=== PATIENT | female | born 1965 | race Caucasian/White ===

== ENCOUNTER 2017-10-21 20:18 | Emergency (ER) | payer BC ==
[2017-10-21 20:24] VITALS: TEMP 99.2
[2017-10-21] MEDS ORDERED: ONDANSETRON 4 MG/2 ML VIAL IVP STA (20:51)
[2017-10-21] MEDS ORDERED: SODIUM CHLORIDE 0.9% 1,000 ML IV STA (20:51)
[2017-10-21 21:11] LABS: Basophils % (A) 1 %; Eosinophils # (A) 0.1 k/uL (0-0.7); Eosinophils % (A) 1 %; HCT 43.4 % (34.0-46.0); HGB 15.5 gm/dL (11.4-16.0); Lymphocytes # (A) 1.9 k/uL (1.0-4.8); Lymphocytes % (A) 30 %; MCH 31.9 pg (25.0-35.0); MCHC 35.7 g/dL (31.0-37.0); MCV 89.4 fL (80.0-100.0); Mean Platelet Volume 6.6; Monocytes # (A) 0.3 k/uL (0-1.0); Monocytes % (A) 5 %; Neutrophils % (A) 62 %; Platelet Count 429 k/uL (150-450); RBC 4.86 m/uL (3.80-5.40); RDW 11.9 % (11.5-15.5); WBC 6.5 k/uL (3.8-10.6)
--- NOTE | 2017-10-21 21:13 | ED ---
General Adult HPI - General Chief complaint: Abdominal Pain Stated complaint: Abd pain Time Seen by Provider: 10/21/17 20:44 Source: patient, RN notes reviewed Mode of arrival: wheelchair Limitations: no limitations - History of Present Illness Initial comments: Patient 52-year-old female presented to the emergency room today with a chief complaint of abdominal pain over the last 4 days. Patient does admit that she' s had some symptoms of nausea vomiting. Denies any diarrhea. Does admit that family numbers have some similar symptoms. Patient states that his have pain on the right side of the abdomen. Patient denies any other complaints or symptoms. Patient denies any recent fever, chills, shortness of breath, chest pain, numbness or tingling, dysuria or hematuria, constipation or diarrhea, headaches or visual changes, or any other complaints. - Related Data Home Medications Medication Instructions Recorded Confirmed Folic Acid 0.8 mg PO DAILY 10/21/17 10/21/17 Omeprazole Magnesium [PriLOSEC OTC] 20 mg PO DAILY 10/21/17 10/21/17 Thiamine [Vitamin B-1] 100 mg PO DAILY 10/21/17 10/21/17 amLODIPine [Norvasc] 5 mg PO DAILY 10/21/17 10/21/17 Previous Rx's Medication Instructions Recorded Ondansetron Odt [Zofran ODT] 4 mg PO Q8HR PRN #20 tab 10/21/17 Allergies Allergy/AdvReac Type Severity Reaction Status Date / Time No Known Allergies Allergy Verified 10/21/17 20:37 Review of Systems ROS Statement: Those systems with pertinent positive or pertinent negative responses have been documented in the HPI. ROS Other: All systems not noted in ROS Statement are negative. Past Medical History Past Medical History: GI Bleed Additional Past Medical History / Comment(s): abdominal discomfort History of Any Multi-Drug Resistant Organisms: MRSA Date of last positivie culture/infection: 2005 MDRO Source:: L LEG WOUND. Past Surgical History: No Surgical Hx Reported Additional Past Surgical History / Comment(s): PT HAS NEVER HAD SURGERY. Past Anesthesia/Blood Transfusion Reactions: No Reported Reaction Additional Past Anesthesia/Blood Transfusion Reaction / Comment(s): has had anesthesia with removal of wisdom teeth only Past Psychological History: Depression Smoking Status: Former smoker Past Alcohol Use History: Occasional Past Drug Use History: None Reported - Past Family History Father Family Medical History: Cancer Additional Family Medical History / Comment(s): PT IS LIVING WITH STAGE 4 ESOPHAGEAL CANCER. HE IS 76 YRS OLD. Mother Family Medical History: Vascular Disorder Additional Family Medical History / Comment(s): MOTHER IS ALIVE AND 74 YRES OLD. SHE HAD CARATID ARTERY DISEASE. General Exam - General Exam Comments Initial Comments: General: The patient is awake and alert, in no distress, and does not appear acutely ill. Eye: Pupils are equal, round and reactive to light, extra-ocular movements are intact. No nystagmus. There is normal conjunctiva bilaterally. No signs of icterus. Ears, nose, mouth and throat: There are moist mucous membranes and no oral lesions. Neck: The neck is supple, there is no tenderness or JVD. Cardiovascular: There is a regular rate and rhythm. No murmur, rub or gallop is appreciated. Respiratory: Lungs are clear to auscultation, respirations are non-labored, breath sounds are equal. No wheezes, stridor, rales, or rhonchi. Gastrointestinal: Abdomen soft on palpation. Patient does have mild tenderness in the right upper and lower quadrants. Mild right-sided CVA tenderness. No guarding. No rebound tenderness. Musculoskeletal: Normal ROM, no tenderness. Strength 5/5. Sensation intact. Pulses equal bilaterally 2+. Neurological: A&O x 3. CN II-XII intact, There are no obvious motor or sensory deficits. Coordination appears grossly intact. Speech is normal. Skin: Skin is warm and dry and no rashes or lesions are noted. Psychiatric: Cooperative, appropriate mood & affect, normal judgment. Limitations: no limitations Course Vital Signs 10/21/17 10/21/17 10/21/17 20:21 21:24 22:30 Temperature 99.2 F Pulse Rate 118 H 96 67 Respiratory 18 19 12 Rate Blood Pressure 148/87 130/77 160/92 O2 Sat by Pulse 95 95 96 Oximetry Medical Decision Making - Medical Decision Making Patient reexamined at this time shows no signs of distress. Patient's ultrasound shows a hepatic cyst and no evidence of acute cholecystitis. Patient 's labs reviewed. Blood glucose 162. Patient updated on the results. Doing well. Patient states she feels comfortable following up with family doctor. Advised to have blood sugar rechecked. Will be given nausea medication for symptoms. She is requesting something to help her relax and sleep tonight. Will be given dose of Ativan prior to discharge. Advised return if any symptoms increase worsen. - Lab Data Result diagrams: 10/21/17 20:44 10/21/17 20:44 Lab Results 10/21/17 10/21/17 10/21/17 Range/Units 20:44 20:44 21:16 WBC 6.5 (3.8-10.6) k/uL RBC 4.86 (3.80-5.40) m/uL Hgb 15.5 (11.4-16.0) gm/dL Hct 43.4 (34.0-46.0) % MCV 89.4 (80.0-100.0) fL MCH 31.9 (25.0-35.0) pg MCHC 35.7 (31.0-37.0) g/dL RDW 11.9 (11.5-15.5) % Plt Count 429 (150-450) k/uL Neutrophils % 62 % Lymphocytes % 30 % Monocytes % 5 % Eosinophils % 1 % Basophils % 1 % Neutrophils # 4.0 (1.3-7.7) k/uL Lymphocytes # 1.9 (1.0-4.8) k/uL Monocytes # 0.3 (0-1.0) k/uL Eosinophils # 0.1 (0-0.7) k/uL Basophils # 0.0 (0-0.2) k/uL Sodium 143 (137-145) mmol/L Potassium 4.0 (3.5-5.1) mmol/L Chloride 100 (98-107) mmol/L Carbon Dioxide 23 (22-30) mmol/L Anion Gap 20 mmol/L BUN 11 (7-17) mg/dL Creatinine 0.60 (0.52-1.04) mg/dL Est GFR (CKD-EPI)AfAm >90 (>60 ml/min/1.73 sqM) Est GFR (CKD-EPI)NonAf >90 (>60 ml/min/1.73 sqM) Glucose 162 H (74-99) mg/dL Calcium 9.8 (8.4-10.2) mg/dL Total Bilirubin 0.4 (0.2-1.3) mg/dL AST 31 (14-36) U/L ALT 33 (9-52) U/L Alkaline Phosphatase 111 (38-126) U/L Total Protein 7.5 (6.3-8.2) g/dL Albumin 4.7 (3.5-5.0) g/dL Amylase 88 (30-110) U/L Lipase 158 (23-300) U/L Urine Color Urine Appearance (Clear) Urine pH (5.0-8.0) Ur Specific [place] (1.001-1.035) Urine Protein (Negative) Urine Glucose (UA) (Negative) Urine Ketones (Negative) Urine Blood (Negative) Urine Nitrite (Negative) Urine Bilirubin (Negative) Urine Urobilinogen (<2.0) mg/dL Ur Leukocyte Esterase (Negative) Urine RBC (0-5) /hpf Urine WBC (0-5) /hpf Ur Squamous Epith Cells (0-4) /hpf Urine Mucus (None) /hpf Urine HCG, Qual Not Detected (Not Detectd) 10/21/17 Range/Units 21:16 WBC (3.8-10.6) k/uL RBC (3.80-5.40) m/uL Hgb (11.4-16.0) gm/dL Hct (34.0-46.0) % MCV (80.0-100.0) fL MCH (25.0-35.0) pg MCHC (31.0-37.0) g/dL RDW (11.5-15.5) % Plt Count (150-450) k/uL Neutrophils % % Lymphocytes % % Monocytes % % Eosinophils % % Basophils % % Neutrophils # (1.3-7.7) k/uL Lymphocytes # (1.0-4.8) k/uL Monocytes # (0-1.0) k/uL Eosinophils # (0-0.7) k/uL Basophils # (0-0.2) k/uL Sodium (137-145) mmol/L Potassium (3.5-5.1) mmol/L Chloride (98-107) mmol/L Carbon Dioxide (22-30) mmol/L Anion Gap mmol/L BUN (7-17) mg/dL Creatinine (0.52-1.04) mg/dL Est GFR (CKD-EPI)AfAm (>60 ml/min/1.73 sqM) Est GFR (CKD-EPI)NonAf (>60 ml/min/1.73 sqM) Glucose (74-99) mg/dL Calcium (8.4-10.2) mg/dL Total Bilirubin (0.2-1.3) mg/dL AST (14-36) U/L ALT (9-52) U/L Alkaline Phosphatase (38-126) U/L Total Protein (6.3-8.2) g/dL Albumin (3.5-5.0) g/dL Amylase (30-110) U/L Lipase (23-300) U/L Urine Color Colorless Urine Appearance Clear (Clear) Urine pH 5.5 (5.0-8.0) Ur Specific [place] 1.004 (1.001-1.035) Urine Protein Negative (Negative) Urine Glucose (UA) Negative (Negative) Urine Ketones Negative (Negative) Urine Blood Trace H (Negative) Urine Nitrite Negative (Negative) Urine Bilirubin Negative (Negative) Urine Urobilinogen <2.0 (<2.0) mg/dL Ur Leukocyte Esterase Negative (Negative) Urine RBC 1 (0-5) /hpf Urine WBC 1 (0-5) /hpf Ur Squamous Epith Cells <1 (0-4) /hpf Urine Mucus Rare H (None) /hpf Urine HCG, Qual (Not Detectd) Disposition Clinical Impression: Abdominal pain Disposition: HOME SELF-CARE Condition: Good Instructions: Abdominal Pain (ED) Additional Instructions: Please use medication as discussed. Please follow-up with family doctor in the next 2 days of symptoms have not improved. Please return to emergency room if the symptoms increase or worsen or for any other concerns. Prescriptions: Ondansetron Odt [Zofran ODT] 4 mg PO Q8HR PRN #20 tab PRN Reason: Nausea Referrals: Dae Perkins MD [Primary Care Provider] - 1-2 days Time of Disposition: 23:07
[2017-10-21 21:20] LABS: ALT 33 U/L (9-52); AST 31 U/L (14-36); Albumin 4.7 g/dL (3.5-5.0); Alkaline Phosphatase 111 U/L (38-126); Amylase 88 U/L (30-110); Anion Gap 20 mmol/L; Blood Urea Nitrogen 11 mg/dL (7-17); Calcium 9.8 mg/dL (8.4-10.2); Carbon Dioxide 23 mmol/L (22-30); Chloride 100 mmol/L (98-107); Glucose 162 mg/dL (74-99); Lipase 158 U/L (23-300); Sodium 143 mmol/L (137-145); Total Bilirubin 0.4 mg/dL (0.2-1.3); Total Protein 7.5 g/dL (6.3-8.2)
[2017-10-21 21:32] LABS: Appearance,Urine Clear (Clear); Bilirubin,Urine Negative (Negative); Blood,Urine Trace (Negative); Color,Urine Colorless; Glucose,Urine (UA) Negative (Negative); Ketones,Urine Negative (Negative); Leukocyte Esterase,Urine Negative (Negative); Mucus,Urine Rare /hpf; Nitrite,Urine Negative (Negative); PH, Urine 5.5 (5.0-8.0); Protein,Urine Negative (Negative); RBC,Urine 1 /hpf (0-5); Specific Gravity,Urine 1.004 (1.001-1.035); Squamous Epithelial Cell,Urine <1 /hpf (0-4); Urobilinogen,Urine <2.0 mg/dL (<2.0); WBC,Urine 1 /hpf (0-5)
[2017-10-21] MEDS ORDERED: ACETAMINOPHEN IV (For NPO) 1,000 MG in EMPTY BAG 1 BAG IVPB STA (22:38)
[2017-10-21 22:40] VITALS: BP 160/92; PULSE 67; RESP 12
--- NOTE | 2017-10-21 22:46 | US ---
EXAMINATION TYPE: US abdomen limited DATE OF EXAM: 10/21/2017 COMPARISON: NONE CLINICAL HISTORY: Pain. Pain, nausea and vomiting. EXAM MEASUREMENTS: Liver Length: 14.6 cm Gallbladder Wall: 0.2 cm CBD: .6cm Right Kidney: 9.7 x 4.5 x 4.0 cm Pancreas: Tail obscured by overlying bowel gas Liver: Anechoic area seen measuring 1.2 x 1.7 x 1.6, with posterior wall enhancement and through [place] nd transmission consistent with hepatic cyst. Gallbladder: wnl Evidence for sonographic Reed's sign: No CBD: wnl Right Kidney: No hydronephrosis or masses seen Anechoic area seen in left lobe of liver measuring 1.2 x 1.7 x 1.6 cm. IMPRESSION: No acute process.
[2017-10-21] MEDS ORDERED: LORazepam 2 MG/ML INJ IV STA (23:05)
== END 2017-10-21 22:50 | disposition home or self-care (01) ==
LOC: EC 20:18
DX: R10.11 Right upper quadrant pain (principal); R10.31 Right lower quadrant pain; R11.2 Nausea with vomiting, unspecified; Z86.14 Personal history of Methicillin resistant Staphylococcus aureus infection; Z87.891 Personal history of nicotine dependence; Z79.899 Other long term (current) drug therapy
CPT/HCPCS: 36415; 76705; 80053; 81001; 81025; 82150; 83690; 85025; 96361; 96374; 96375; 99284

== ENCOUNTER 2017-10-25 18:04 | Inpatient (IN) | payer BC ==
[2017-10-25] MEDS ORDERED: SODIUM CHLORIDE 0.9% 1,000 ML IV ONE ×2 (18:59→23:14)
[2017-10-25 19:46] LABS: Basophils % (A) 0 %; Eosinophils # (A) 0.1 k/uL (0-0.7); Eosinophils % (A) 2 %; HCT 42.2 % (34.0-46.0); HGB 14.8 gm/dL (11.4-16.0); Lymphocytes % (A) 36 %; MCH 31.6 pg (25.0-35.0); MCHC 35.1 g/dL (31.0-37.0); Mean Platelet Volume 6.4; Monocytes # (A) 0.2 k/uL (0-1.0); Monocytes % (A) 4 %; Neutrophils # (A) 3.1 k/uL (1.3-7.7); Neutrophils % (A) 56 %; Platelet Count 302 k/uL (150-450); RBC 4.69 m/uL (3.80-5.40); RDW 11.9 % (11.5-15.5); WBC 5.6 k/uL (3.8-10.6)
[2017-10-25 19:55] LABS: ALT 44 U/L (9-52); AST 42 U/L (14-36); Acetaminophen <10.0 ug/mL; Albumin 4.4 g/dL (3.5-5.0); Alkaline Phosphatase 102 U/L (38-126); Anion Gap 18 mmol/L; Blood Urea Nitrogen 10 mg/dL (7-17); Calcium 9.5 mg/dL (8.4-10.2); Carbon Dioxide 28 mmol/L (22-30); Chloride 104 mmol/L (98-107); Glucose 110 mg/dL (74-99); Potassium 4.1 mmol/L (3.5-5.1); Salicylate <1.0 mg/dL; Sodium 150 mmol/L (137-145); Total Bilirubin 0.3 mg/dL (0.2-1.3); Total Protein 7.2 g/dL (6.3-8.2)
[2017-10-25 20:05] LABS: Alcohol 346 mg/dL
--- NOTE | 2017-10-25 20:10 | ED ---
Overdose HPI - General Chief Complaint: Psychiatric Symptoms Stated Complaint: Possible overdose Time Seen by Provider: 10/25/17 18:58 Source: patient Mode of arrival: wheelchair Limitations: no limitations - History of Present Illness MD Complaint: intentional overdose Onset/Timin -: hour(s) - Related Data Home Medications Medication Instructions Recorded Confirmed Folic Acid 0.8 mg PO DAILY 10/21/17 10/25/17 Omeprazole Magnesium [PriLOSEC OTC] 20 mg PO DAILY 10/21/17 10/25/17 Thiamine [Vitamin B-1] 100 mg PO DAILY 10/21/17 10/25/17 amLODIPine [Norvasc] 5 mg PO DAILY 10/21/17 10/25/17 Allergies Allergy/AdvReac Type Severity Reaction Status Date / Time No Known Allergies Allergy Verified 10/25/17 18:32 Review of Systems ROS Statement: Those systems with pertinent positive or pertinent negative responses have been documented in the HPI. ROS Other: All systems not noted in ROS Statement are negative. Past Medical History Past Medical History: GI Bleed Additional Past Medical History / Comment(s): abdominal discomfort History of Any Multi-Drug Resistant Organisms: MRSA Date of last positivie culture/infection: 2005 MDRO Source:: L LEG WOUND. Past Surgical History: No Surgical Hx Reported Additional Past Surgical History / Comment(s): PT HAS NEVER HAD SURGERY. Past Anesthesia/Blood Transfusion Reactions: No Reported Reaction Additional Past Anesthesia/Blood Transfusion Reaction / Comment(s): has had anesthesia with removal of wisdom teeth only Past Psychological History: Depression Smoking Status: Former smoker Past Alcohol Use History: Occasional Past Drug Use History: None Reported - Past Family History Father Family Medical History: Cancer Additional Family Medical History / Comment(s): PT IS LIVING WITH STAGE 4 ESOPHAGEAL CANCER. HE IS 76 YRS OLD. Mother Family Medical History: Vascular Disorder Additional Family Medical History / Comment(s): MOTHER IS ALIVE AND 74 YRES OLD. SHE HAD CARATID ARTERY DISEASE. General Exam Limitations: no limitations Course Vital Signs 10/25/17 18:09 Temperature 97.5 F L Pulse Rate 112 H Respiratory 18 Rate Blood Pressure 143/102 O2 Sat by Pulse 94 L Oximetry Medical Decision Making - Lab Data Result diagrams: 10/25/17 19:30 10/25/17 19:30 Lab Results 10/25/17 10/25/17 Range/Units 19:30 19:30 WBC 5.6 (3.8-10.6) k/uL RBC 4.69 (3.80-5.40) m/uL Hgb 14.8 (11.4-16.0) gm/dL Hct 42.2 (34.0-46.0) % MCV 90.0 (80.0-100.0) fL MCH 31.6 (25.0-35.0) pg MCHC 35.1 (31.0-37.0) g/dL RDW 11.9 (11.5-15.5) % Plt Count 302 (150-450) k/uL Neutrophils % 56 % Lymphocytes % 36 % Monocytes % 4 % Eosinophils % 2 % Basophils % 0 % Neutrophils # 3.1 (1.3-7.7) k/uL Lymphocytes # 2.0 (1.0-4.8) k/uL Monocytes # 0.2 (0-1.0) k/uL Eosinophils # 0.1 (0-0.7) k/uL Basophils # 0.0 (0-0.2) k/uL Sodium 150 H (137-145) mmol/L Potassium 4.1 (3.5-5.1) mmol/L Chloride 104 (98-107) mmol/L Carbon Dioxide 28 (22-30) mmol/L Anion Gap 18 mmol/L BUN 10 (7-17) mg/dL Creatinine 0.60 (0.52-1.04) mg/dL Est GFR (CKD-EPI)AfAm >90 (>60 ml/min/1.73 sqM) Est GFR (CKD-EPI)NonAf >90 (>60 ml/min/1.73 sqM) Glucose 110 H (74-99) mg/dL Calcium 9.5 (8.4-10.2) mg/dL Total Bilirubin 0.3 (0.2-1.3) mg/dL AST 42 H (14-36) U/L ALT 44 (9-52) U/L Alkaline Phosphatase 102 (38-126) U/L Total Protein 7.2 (6.3-8.2) g/dL Albumin 4.4 (3.5-5.0) g/dL Salicylates <1.0 mg/dL Acetaminophen <10.0 ug/mL Serum Alcohol 346 mg/dL - EKG Data -: EKG Interpreted by Me EKG shows normal: sinus rhythm, axis (Normal), intervals (Normal), QRS complexes (Normal), ST-T waves (Normal) Rate: tachycardia (Rate 107 bpm) Interpretation: normal EKG Disposition Referrals: Dae Perkins MD [Primary Care Provider] - 1-2 days
[2017-10-25 20:34] LABS: Appearance,Urine Clear (Clear); Bacteria,Urine Rare /hpf; Bilirubin,Urine Negative (Negative); Blood,Urine Trace (Negative); Color,Urine Colorless; Glucose,Urine (UA) Negative (Negative); Ketones,Urine Negative (Negative); Leukocyte Esterase,Urine Negative (Negative); Nitrite,Urine Negative (Negative); PH, Urine 7.5 (5.0-8.0); Protein,Urine Negative (Negative); RBC,Urine 1 /hpf (0-5); Specific Gravity,Urine 1.003 (1.001-1.035); Squamous Epithelial Cell,Urine <1 /hpf (0-4); Urobilinogen,Urine <2.0 mg/dL (<2.0); WBC,Urine 1 /hpf (0-5)
[2017-10-25 20:43] LABS: Amphetamine Screen,Urine Not Detected (NotDetected); Barbiturate Screen,Urine Not Detected (NotDetected); Benzodiazepines Screen,Urine Not Detected (NotDetected); Cocaine Screen,Urine Not Detected (NotDetected); Methadone Screen, Urine Not Detected (NotDetected); Opiate Screen,Urine Not Detected (NotDetected); Oxycodone Screen, Urine Not Detected (NotDetected); Phencyclidine Screen,Urine Not Detected (NotDetected); Tricyclic Antidepressant,Urine Not Detected (NotDetected); Urn Cannabinoid Scrn Not Detected (NotDetected)
[2017-10-25] MEDS ORDERED: ONDANSETRON 4 MG/2 ML VIAL IVP STA (22:03)
[2017-10-25] MEDS ORDERED: ACETAMINOPHEN TAB 325 MG TAB PO PRN (22:58)
[2017-10-25] MEDS ORDERED: ONDANSETRON 4 MG/2 ML VIAL IVP PRN (22:58)
[2017-10-25] MEDS ORDERED: NALOXONE 0.4 MG/ML 1 ML VIAL IV PRN (22:58)
[2017-10-25] MEDS ORDERED: THIAMINE 100 MG/ML 2 ML VIAL IM STA (23:06)
[2017-10-25] MEDS ORDERED: LORazepam 2 MG/ML INJ IV PRN ×2 (23:06)
[2017-10-25] MEDS ORDERED: LORazepam 2 MG/ML INJ IV STA ×2 (23:14→23:20)
[2017-10-26 00:14] VITALS: BMI 22.4
[2017-10-26] MEDS: PANTOPRAZOLE 40 MG TABLET PO SCH (07:48)
[2017-10-26] MEDS: FOLIC ACID 1 MG TAB PO SCH (07:48)
[2017-10-26] MEDS: LORazepam 2 MG/ML INJ IV PRN ×2 (07:57→10:03)
[2017-10-26] MEDS: chlordiazePOXIDE 25 MG CAP PO SCH ×3 (08:05→21:08)
[2017-10-26] MEDS ORDERED: amLODIPine 5 MG TAB PO SCH (09:00)
[2017-10-26] MEDS ORDERED: THIAMINE 100 MG TAB PO SCH (09:00)
--- NOTE | 2017-10-26 11:09 | P.HPIM ---
History of Present Illness Patient is a pleasant 52-year-old female known history of alcohol use drink alcohol on a daily basis about the obtained a pint of alcohol every day was drinking yesterday and took 15 pills of Wellbutrin as she believes Wellbutrin will help her quit drinking. Patient presently history malaise because of the Wellbutrin overdose and probably alcohol withdrawal and her CIWA score presently is around 9-10, patient is comparing of lightheadedness patient was started on D5 half-normal saline patient is hypernatremic and patient denied any fever chills dysuria patient is bit nauseous. Patient was started on seizure cautions. Patient denied any suicidal ideations and the psychiatric was consulted. Review of Systems REVIEW OF SYSTEMS: CONSTITUTIONAL: No fever, no malaise, no fatigue. HEENT: No recent visual problems or hearing problems. Denied any sore throat. CARDIOVASCULAR: No chest pain, orthopnea, PND, no palpitations, no syncope. PULMONARY: No shortness of breath, no cough, no hemoptysis. GASTROINTESTINAL: No diarrhea, no nausea, no vomiting, no abdominal pain. Normoactive bowel sounds. NEUROLOGICAL: No headaches, no weakness, no numbness. HEMATOLOGICAL: Denies any bleeding or petechiae. GENITOURINARY: Denies any burning micturition, frequency, or urgency. MUSCULOSKELETAL/RHEUMATOLOGICAL: Denies any joint pain, swelling, or any muscle pain. ENDOCRINE: Denies any polyuria or polydipsia. The rest of the 14-point review of systems is negative. Past Medical History Past Medical History: GI Bleed Additional Past Medical History / Comment(s): abdominal discomfort History of Any Multi-Drug Resistant Organisms: MRSA Date of last positivie culture/infection: 2005 MDRO Source:: L LEG WOUND. Past Surgical History: No Surgical Hx Reported Additional Past Surgical History / Comment(s): PT HAS NEVER HAD SURGERY. Past Anesthesia/Blood Transfusion Reactions: No Reported Reaction Additional Past Anesthesia/Blood Transfusion Reaction / Comment(s): has had anesthesia with removal of wisdom teeth only Past Psychological History: Depression Additional Psychological History / Comment(s): . Smoking Status: Former smoker Past Alcohol Use History: Occasional Additional Past Alcohol Use History / Comment(s): stopped smoking 15-20 years ago smoked 1/2ppd for few years Past Drug Use History: None Reported - Past Family History Father Family Medical History: Cancer Additional Family Medical History / Comment(s): PT IS LIVING WITH STAGE 4 ESOPHAGEAL CANCER. HE IS 76 YRS OLD. Mother Family Medical History: Vascular Disorder Additional Family Medical History / Comment(s): MOTHER IS ALIVE AND 74 YRES OLD. SHE HAD CARATID ARTERY DISEASE. Medications and Allergies Home Medications Medication Instructions Recorded Confirmed Type Folic Acid 0.8 mg PO DAILY 10/21/17 10/25/17 History Omeprazole Magnesium [PriLOSEC OTC] 20 mg PO DAILY 10/21/17 10/25/17 History Thiamine [Vitamin B-1] 100 mg PO DAILY 10/21/17 10/25/17 History amLODIPine [Norvasc] 5 mg PO DAILY 10/21/17 10/25/17 History Allergies Allergy/AdvReac Type Severity Reaction Status Date / Time No Known Allergies Allergy Verified 10/25/17 18:32 Physical Exam Vitals: Vital Signs Temp Pulse Pulse Resp BP BP Pulse Ox 10/26/17 08:00 105 H 18 10/26/17 07:00 98.2 F 105 H 18 106/65 96 10/26/17 00:00 87 18 10/25/17 23:56 97.1 F L 122 H 18 138/77 97 10/25/17 23:25 120 H 16 108/63 100 10/25/17 22:00 16 10/25/17 21:25 110 H 16 112/73 96 10/25/17 18:09 97.5 F L 112 H 18 143/102 94 L Intake and Output 10/25/17 10/26/17 10/26/17 22:59 06:59 14:59 Intake Total 200 Balance 200 Intake: Oral 200 Other: Voiding Method Toilet Toilet # Voids 1 Weight 61.235 kg 61.23 kg PHYSICAL EXAMINATION: GENERAL: The patient is alert and oriented x3, not in any acute distress. Well developed, well nourished. Patient does have significant tremors HEENT: Pupils are round and equally reacting to light. EOMI. No scleral icterus. No conjunctival pallor. Normocephalic, atraumatic. No pharyngeal erythema. No thyromegaly. CARDIOVASCULAR: S1 and S2 present. No murmurs, rubs, or gallops. PULMONARY: Chest is clear to auscultation, no wheezing or crackles. ABDOMEN: Soft, nontender, nondistended, normoactive bowel sounds. No palpable organomegaly. MUSCULOSKELETAL: No joint swelling or deformity. EXTREMITIES: No cyanosis, clubbing, or pedal edema. NEUROLOGICAL: Gross neurological examination did not reveal any focal deficits. SKIN: No rashes. Results CBC & Chem 7: 10/25/17 19:30 10/25/17 19:30 Labs: Abnormal Lab Results - Last 24 Hours (Table) 10/25/17 10/25/17 Range/Units 19:30 20:21 Sodium 150 H (137-145) mmol/L Glucose 110 H (74-99) mg/dL AST 42 H (14-36) U/L Urine Blood Trace H (Negative) Urine Bacteria Rare H (None) /hpf Thrombosis Risk Factor Assmnt - Choose All That Apply Any of the Below Risk Factors Present?: No Assessment and Plan Plan: -Alcohol overdose -Alcohol withdrawal: Patient is on Ativan CIWA protocol IV fluids D5 half- normal saline thiamine multivitamin supplementation -Wellbutrin overdose and severe depression: The patient will be on seizure precautions. IV fluids as mentioned above. -Lightheadedness: Secondary to hypotension IV fluids as mentioned above. -Hypernatremia hypovolemic hyponatremia IV fluids as mentioned above -Hypertension: Patient is presently on amlodipine which was discontinued will use metoprolol if his blood pressure is better as patient is tachycardic because of alcohol withdrawal and Wellbutrin overdose.
[2017-10-26] MEDS: DEXTROSE 5%-0.45% NACL 1,000 ML IV SCH ×2 (11:13→20:19)
--- NOTE | 2017-10-26 16:08 | P.CN ---
Psychiatric Consult - . Consult date: 10/26/17 Consult:: 10/26/17 15:51 Identification: Patient is a 52-year-old female was brought to the hospital by her when he saw her taking a handful of Wellbutrin Reason for Consult: Consultation was requested for overdose, alcohol use History of Present Illness: Patient's chart was reviewed, the patient was seen and interviewed in her room no family members were present. Patient states that she had been prescribed Wellbutrin 2 tabs of an unknown dosage to take at bedtime by her family physician to decrease her cravings for alcohol. Patient states that she took 15 of them so that she could sleep, she states that she knew 15 could possibly kill her but also wanted to do was sleep and was not attempting suicide. Patient states that she's been using a half a pint of alcohol a day for the last 3 years. She states that her travels a lot and stated that she dislikes being alone at home at night. She reports that she has had withdrawal symptoms in the past including shaking, tremors as well as visual hallucinations but reports no seizures. Patient states that she does have blackouts when she is drinking and cannot recall what she is done the night before. She states that she used alcohol only socially prior to 3 years ago. Patient reports that she is never attended any AA meetings, in or outpatient substance abuse programs. She states that she becomes anxious when she is home alone and in February 2016 when her was gone for a month feeling a show on the [employer] channel she was given Xanax to help with her anxiety which she took at night to assist with sleep and she has not been taking that since that time. Patient states she had been drinking when she took the Wellbutrin and continued to insist that she took it to assist her sleep , when I asked her if it ever made her feel drowsy when she been taking it in the past she said no. Patient again denied that she wanted to was attempting suicide but did acknowledge that she took the medication to put her to sleep and hope that she didn't wake up. Patient denies prior suicide attempts, denies feeling depressed in the past and denies any prior psychotic symptoms and no OCD symptoms were elicited. Patient states that her anxiety is about being home alone and she states that she and her also purchased a home for their daughter and she has concerns that the daughter will not continue to pay on the loan and they cosigned for with her. She also watches her granddaughter at night while her daughter works. She says that [place] she has some neighbors but dislikes living out in the country at night. Past Psychiatric History: Patient denies any prior inpatient psychiatric treatment, she has not received any substance/alcohol he treatment and states she was given Xanax for a month in February 2016 for anxiety. Patient was recently given an unknown dosage of Wellbutrin with instructions to take 2 at bedtime to decrease her cravings for alcohol. Past Medical/Surgical History: Patient reports being treated for hypertension, in the chart it is noted that the patient has had a GI bleed in the past patient denied this. She denies any surgical procedures. ] Family History: Patient denies any psychiatric history in the family. She states that her sister, mother and father all use alcohol on a daily basis. Patient's paternal cousin completed suicide. Patient did not tell me but the nurse informed me that the patient's ex- completed suicide by overdose. Social History: Patient reports that she was born and raised in [place] and both of her parents are alive. She has one sister. 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 She states that she's been to her current for 32 years, the patient never told me that she had been prior to this. Patient has 2 daughters. She denies any abuse history. She denies any financial difficulties and states that her relationship with her is good Substance Use History: Patient states he began using alcohol at the age of 17 but states she was only a social drinker at that time. Patient states the last 3 years she's been drinking a half a pint a day. Patient denies any IV drug use , other drug use and no tobacco use. Legal History: Denies any legal history Mental status: Appearance/Attitude: Patient is lying in a hospital bed, makes intermittent eye contact and is cooperative Behavior: Patient does not display any psychomotor agitation or retardation, patient has tremors and reports that she feels nauseated Speech/Language: Patient's speech is spontaneous, she speaks in a soft voice with normal rhythm and she is coherent Thought Process: Patient is goal-directed although needed some questions repeated twice, no evidence of circumstantial or tangential thought Thought Content: Patient denies any auditory hallucinations but states she was seeing shadows yesterday and is not currently having any visual hallucinations. No delusions or paranoid ideation were elicited. Patient was asked on several occasions about her reasons for taking 15 Wellbutrin yesterday and she would say that she was trying to sleep even though she knew Wellbutrin had not helped her sleep, she told me that she knew that taking 15 of them could kill her but that she did not want to and just wanted to sleep and not wake up and again reiterated that she did not want to . When patient was confronted with the conflicting comments she was unable to explain this to me. Patient states that she has not been eating well at home for some time, has been having blackouts at home where she does not recall what she did the night before. Suicidal/Homicidal Ideation: patient denied that she was feeling suicidal currently, as stated above she gave conflicting reports of wanting to take 15 Wellbutrin to help her sleep and not wake up but not wanting to . Patient denies any current homicidal ideation Sensorium/Cognition: patient was alert and oriented to person, place, location further cognitive testing was not performed due to the patient not feeling well physically Mood/Affect: patient's mood was distressed and her affect was blunted Insight/Judgment: patient's insight and judgment are limited regarding her use of alcohol Assessment: patient was brought to the emergency room by her who saw the patient taking a handful of Wellbutrin, per the patient this wasn't an attempt to assist her sleep and she then stated that she knew that 15 tablets could kill her and wanted to sleep and not wake up but did not want to . Patient reports drinking a half a pint of liquor a day for the last 3 years and states that she was taking Wellbutrin prescribed for her at bedtime 2 tablets of an unknown dosage to decrease the cravings for alcohol. Patient reports that she began drinking daily when her began traveling a lot and she disliked being home alone at night. Patient is having nausea, vomiting, she is tremulous and states she has no appetite and hasn't for several days prior to her admission. Patient reports a history of blackouts, she denies any seizures while withdrawing. Patient did state that she was seeing shadows yesterday but currently is not. Diagnosis: alcohol use disorder, severe; alcohol withdrawal; rule out anxiety disorder secondary to alcohol use, rule out depressive disorder secondary to alcohol use Plan: patient is currently not feeling well physically,having withdrawal symptoms and required some of the questions to be repeated twice and gave conflicting information regarding why she took 15 Wellbutrin. At one point the patient stated it was to go to sleep and never wake up but then contradicted herself by saying that she did not want to . Will continue suicide precautions at this time. Will return to reevaluate the patient and as her withdrawal symptoms lessen, reevaluate the need for inpatient psychiatric treatment. Per the nurse patient's ex- completed suicide, the patient did not discuss this with me and she has a paternal cousin who also completed suicide.
[2017-10-26] MEDS: THIAMINE 100 MG TAB PO SCH (16:09)
[2017-10-26] MEDS: METOPROLOL TARTRATE 25 MG TAB PO SCH (21:08)
[2017-10-27] MEDS: DEXTROSE 5%-0.45% NACL 1,000 ML IV SCH (05:32)
[2017-10-27 07:45] VITALS: BP 125/76; PULSE 97; RESP 16; TEMP 98.2
[2017-10-27 07:58] LABS: HCT 39.1 % (34.0-46.0); HGB 13.8 gm/dL (11.4-16.0); MCH 31.6 pg (25.0-35.0); MCHC 35.3 g/dL (31.0-37.0); MCV 89.5 fL (80.0-100.0); Mean Platelet Volume 6.8; Platelet Count 246 k/uL (150-450); RBC 4.37 m/uL (3.80-5.40); RDW 11.9 % (11.5-15.5); WBC 4.8 k/uL (3.8-10.6)
[2017-10-27 08:10] LABS: Anion Gap 12 mmol/L; Blood Urea Nitrogen 4 mg/dL (7-17); Calcium 9.5 mg/dL (8.4-10.2); Carbon Dioxide 27 mmol/L (22-30); Chloride 99 mmol/L (98-107); Glucose 124 mg/dL (74-99); Potassium 3.3 mmol/L (3.5-5.1); Sodium 138 mmol/L (137-145)
[2017-10-27] MEDS: METOPROLOL TARTRATE 25 MG TAB PO SCH (08:18)
[2017-10-27] MEDS: chlordiazePOXIDE 25 MG CAP PO SCH (08:18)
[2017-10-27] MEDS: FOLIC ACID 1 MG TAB PO SCH (08:18)
[2017-10-27] MEDS: PANTOPRAZOLE 40 MG TABLET PO SCH (08:18)
[2017-10-27] MEDS: THIAMINE 100 MG TAB PO SCH (11:39)
--- NOTE | 2017-10-27 14:55 | P.PN ---
Progress Note - Text Progress Note Date: 10/27/17 Interval History: Patient is a 52-year-old female who is being seen in follow- up to a consultation done yesterday. Patient reports that she is feeling much better and is no longer having any vomiting and states that her shaking has subsided greatly. She states that she was able to eat some soup for lunch and has been able to drink water. When I asked the patient about her taking the Wellbutrin she stated that she and and her were in the bathroom and he was nagging her to take her medication, she states that they both had been drinking and she took a handful of pills to show him and denies that this was an overdose attempt. She does not recall when she said to me yesterday that she took them so that she could go to sleep. Patient states that she is not feeling suicidal and was not attempting suicide and states that she has never had any suicidal thoughts nor wanted to . Patient states that she drinks about a half a pint of alcohol a day, her as well drinks alcohol and she stated that she does hide alcohol in the house. She states that her has cleared all of the alcohol out of the house. Patient states that she has never been treated for depression, has never felt depressed or suicidal in the past and has no history of suicide attempts. Patient reports that she has never had any psychiatric treatment. Mental Status: Appearance/Attitude: Patient is sitting in a hospital bed in no acute distress makes good eye contact and is cooperative Behavior: Patient does not exhibit any psychomotor agitation or retardation, some slight tremulousness Speech/Language: Patient's speech is spontaneous and normal volume and rhythm and she is coherent Thought Process: Patient is goal-directed there is no evidence of loose association or flight of ideas Thought Content: Patient denies auditory or visual hallucinations and no delusions or paranoid ideation were elicited. Patient states that she was not attempting suicide but took a handful of pills because her had been egging her to take her medication. She states that she has never felt suicidal and and does not currently as well as denying any prior suicide attempts. Patient again stated that she drinks about a half a pint of alcohol a day but did admit to hiding alcohol in the house. Patient states she is feeling better today, no further nausea and vomiting and she has been able to eat. Suicidal/Homicidal Ideation: Patient denies any current suicidal or homicidal ideation Sensorium/Cognition: Patient is alert and oriented to person, place, time and her recent and remote memory are grossly intact Mood/Affect: Patient's mood is pleasant and her affect is appropriate Insight/Judgment: Patient's insight and judgment are fair Assessment: Patient is seen today and she is feeling better from a physical standpoint, she states that her thinking is clearer today. Patient denies that she took the Wellbutrin in an overdose attempt but states that she took a handful of pills because her had been nagging her about taking her medication. Patient stated to me that she does feel that alcohol use is a problem, she states that she is drinking about a half a pint a day but is well hides alcohol. She states that her has cleared out all the alcohol in the house. Patient states that the Wellbutrin was given to her to decrease her cravings for alcohol. Patient reports today that she has never been treated for depression, has never felt depressed denies any prior suicide attempts and states she is never felt suicidal. She denies any difficulties in her relationship with her . Plan: Patient is not reporting any current suicidal ideation and denies that this was a suicide attempt and one-to-one suicide precautions can be discontinued. Patient also does require an inpatient psychiatric hospital stay. I discussed with the patient the long-term consequences of continued alcohol use and strongly encourage the patient to consider either inpatient or outpatient alcohol rehab programs as well as attending AA meetings. I will place a social work consultation for referrals for alcohol rehab programs the patient was agreeable to this. I also recommend that the patient not be restarted on Wellbutrin as there is no benefit in decreasing the craving for alcohol. Patient should also not be discharged on benzodiazepines. Patient was encouraged to consider attending a rehab program, remaining sober and attending AA meetings. I will sign off the case and if there are any questions or concerns please and hesitate to contact me.
[2017-10-27] MEDS ORDERED: POTASSIUM CHLORIDE ER 20 MEQ TAB.ER PO STA (15:36)
--- NOTE | 2017-10-27 15:41 | P.DS ---
Providers Date of admission: 10/25/17 22:59 Attending physician: Aurelio Varela Consults: 10/25/17 23:00 Consult Physician Routine Consulting Provider: Cande Hernandez Consult Reason/Comments: overdose Do you want consulting provider notified?: Yes Primary care physician: Dae Perkins [facility] Course: 52-year-old female known history of alcohol use drink alcohol on a daily basis about the obtained a pint of alcohol every day was drinking yesterday and took 15 pills of Wellbutrin as she believes Wellbutrin will help her quit drinking. Patient presently history malaise because of the Wellbutrin overdose and probably alcohol withdrawal and her CIWA score presently is around 9-10, patient is comparing of lightheadedness patient was started on D5 half-normal saline patient is hypernatremic and patient denied any fever chills dysuria patient is bit nauseous. Patient was started on seizure cautions. Patient denied any suicidal ideations and the psychiatric was consulted. 10/27/2017 Patient tremors improved but does have tremulousness patient was seizure free psychiatric valid the patient they're recommending against any benzodiazepines or Wellbutrin and the patient will be discharged to follow with primary care patient is an outpatient patient was started on metoprolol for tachycardia related to her alcohol withdrawals which improved now patient was discharged on metoprolol patient already has thiamine multivitamin supplements at home which she will continue. GENERAL: The patient is alert and oriented x3, not in any acute distress. Well developed, well nourished. Patient does have tremors which actually improved HEENT: Pupils are round and equally reacting to light. EOMI. No scleral icterus. No conjunctival pallor. Normocephalic, atraumatic. No pharyngeal erythema. No thyromegaly. CARDIOVASCULAR: S1 and S2 present. No murmurs, rubs, or gallops. PULMONARY: Chest is clear to auscultation, no wheezing or crackles. ABDOMEN: Soft, nontender, nondistended, normoactive bowel sounds. No palpable organomegaly. MUSCULOSKELETAL: No joint swelling or deformity. EXTREMITIES: No cyanosis, clubbing, or pedal edema. NEUROLOGICAL: Gross neurological examination did not reveal any focal deficits. SKIN: No rashes. Assessment and Plan Plan: -Alcohol overdose -Alcohol withdrawal: Improved -Wellbutrin overdose and severe depression: -Lightheadedness: Resolved -Hypernatremia hypovolemic hyponatremia improved now -Hypertension: Plan - Discharge Summary Discharge Rx Participant: No New Discharge Prescriptions: New Metoprolol Tartrate [Lopressor] 25 mg PO BID #60 tab Continue Thiamine [Vitamin B-1] 100 mg PO DAILY Folic Acid 0.8 mg PO DAILY Omeprazole Magnesium [PriLOSEC OTC] 20 mg PO DAILY Discontinued amLODIPine [Norvasc] 5 mg PO DAILY Discharge Medication List Folic Acid 0.8 mg PO DAILY 10/21/17 [History] Omeprazole Magnesium [PriLOSEC OTC] 20 mg PO DAILY 10/21/17 [History] Thiamine [Vitamin B-1] 100 mg PO DAILY 10/21/17 [History] Metoprolol Tartrate [Lopressor] 25 mg PO BID #60 tab 10/27/17 [Rx] Follow up Appointment(s)/Referral(s): Dae Perkins MD [Primary Care Provider] - 3 Days Discharge Disposition: HOME SELF-CARE
== END 2017-10-27 16:18 | disposition home or self-care (01) | DRG 918 ==
LOC: EC 18:04 → 5MS5E 22:59
PROVIDERS: ADMIT Internal Medicine; ATTEND Internal Medicine
DX: T43.291A Poisoning by other antidepressants, accidental (unintentional), initial encounter (principal); F10.231 Alcohol dependence with withdrawal delirium; E87.0 Hyperosmolality and hypernatremia; I95.9 Hypotension, unspecified; E87.1 Hypo-osmolality and hyponatremia; I10 Essential (primary) hypertension; F32.9 Major depressive disorder, single episode, unspecified; R00.0 Tachycardia, unspecified; T51.0X1A Toxic effect of ethanol, accidental (unintentional), initial encounter; Y90.8 Blood alcohol level of 240 mg/100 ml or more; E86.1 Hypovolemia; Z79.899 Other long term (current) drug therapy; Z86.79 Personal history of other diseases of the circulatory system; Z82.49 Family history of ischemic heart disease and other diseases of the circulatory system; Z80.0 Family history of malignant neoplasm of digestive organs; Z87.891 Personal history of nicotine dependence; Z87.19 Personal history of other diseases of the digestive system; Z86.14 Personal history of Methicillin resistant Staphylococcus aureus infection; Z71.41 Alcohol abuse counseling and surveillance of alcoholic
CPT/HCPCS: 36415; 80048; 80053; 80306; 80320; 81001; 82075; 83520; 85025; 85027; 93005; 96361; 96374; 96375; 99285

== ENCOUNTER 2017-12-22 07:39 | Emergency (ER) | payer BC ==
[2017-12-22] MEDS ORDERED: SODIUM CHLORIDE 0.9% 1,000 ML IV STA (08:18)
[2017-12-22] MEDS ORDERED: METOPROLOL TARTRATE 25 MG TAB PO STA (08:19)
[2017-12-22 08:43] LABS: Basophils % (A) 1 %; Eosinophils # (A) 0.1 k/uL (0-0.7); Eosinophils % (A) 1 %; HCT 41.7 % (34.0-46.0); HGB 14.3 gm/dL (11.4-16.0); Lymphocytes # (A) 1.1 k/uL (1.0-4.8); Lymphocytes % (A) 15 %; MCH 31.7 pg (25.0-35.0); MCHC 34.2 g/dL (31.0-37.0); MCV 92.5 fL (80.0-100.0); Mean Platelet Volume 6.8; Monocytes # (A) 0.3 k/uL (0-1.0); Monocytes % (A) 4 %; Neutrophils # (A) 5.7 k/uL (1.3-7.7); Neutrophils % (A) 79 %; Platelet Count 325 k/uL (150-450); RBC 4.51 m/uL (3.80-5.40); RDW 12.7 % (11.5-15.5); WBC 7.2 k/uL (3.8-10.6)
--- NOTE | 2017-12-22 08:49 | ED ---
General Adult HPI - General Chief complaint: Chest Pain Stated complaint: chest pain Time Seen by Provider: 12/22/17 08:12 Source: patient, family, RN notes reviewed Mode of arrival: wheelchair Limitations: no limitations - History of Present Illness Initial comments: This a 52-year-old female presents emergency Department with complaint of near- syncope. Patient was at work states that she started having tingling of her hands and became shaky and felt that she has not passed out. Patient states at this time she has no symptoms/symptom-free. Patient states that she does have a history of high blood pressure states that she's not sure if she took her blood pressure medication this morning. Patient reports no chest pain or shortness of breath. Patient states that she has no colic and has been having issues again. Patient is not suicidal or homicidal. Patient states she never passed out. Work did call EMS and which she signed off she did have her blood sugar checked an EKG which is unremarkable. Were commenced that she needed to come in and be evaluated. Patient's denies any nausea vomiting diarrhea constipation. Patient denies any diaphoretic episodes no prior cardiac history. - Related Data Home Medications Medication Instructions Recorded Confirmed Folic Acid 0.8 mg PO DAILY 10/21/17 12/22/17 Omeprazole Magnesium [PriLOSEC OTC] 20 mg PO DAILY 10/21/17 12/22/17 Thiamine [Vitamin B-1] 100 mg PO DAILY 10/21/17 12/22/17 Previous Rx's Medication Instructions Recorded Metoprolol Tartrate [Lopressor] 25 mg PO BID #60 tab 10/27/17 Metoprolol Tartrate [Lopressor] 25 mg PO BID #30 tablet 12/22/17 Allergies Allergy/AdvReac Type Severity Reaction Status Date / Time No Known Allergies Allergy Verified 12/22/17 08:12 Review of Systems ROS Statement: Those systems with pertinent positive or pertinent negative responses have been documented in the HPI. ROS Other: All systems not noted in ROS Statement are negative. Past Medical History Past Medical History: GI Bleed Additional Past Medical History / Comment(s): abdominal discomfort History of Any Multi-Drug Resistant Organisms: MRSA Date of last positivie culture/infection: 2005 MDRO Source:: L LEG WOUND. Past Surgical History: No Surgical Hx Reported Additional Past Surgical History / Comment(s): PT HAS NEVER HAD SURGERY. Past Anesthesia/Blood Transfusion Reactions: No Reported Reaction Additional Past Anesthesia/Blood Transfusion Reaction / Comment(s): has had anesthesia with removal of wisdom teeth only Past Psychological History: Depression Smoking Status: Former smoker Past Alcohol Use History: Occasional Past Drug Use History: None Reported - Past Family History Father Family Medical History: Cancer Additional Family Medical History / Comment(s): PT IS LIVING WITH STAGE 4 ESOPHAGEAL CANCER. HE IS 76 YRS OLD. Mother Family Medical History: Vascular Disorder Additional Family Medical History / Comment(s): MOTHER IS ALIVE AND 74 YRES OLD. SHE HAD CARATID ARTERY DISEASE. General Exam General appearance: alert, in no apparent distress Head exam: Present: atraumatic, normocephalic, normal inspection Eye exam: Present: normal appearance, PERRL, EOMI. Absent: scleral icterus, conjunctival injection, periorbital swelling ENT exam: Present: normal exam, normal oropharynx, mucous membranes moist Neck exam: Present: normal inspection, full ROM. Absent: tenderness, meningismus, lymphadenopathy Respiratory exam: Present: normal lung sounds bilaterally. Absent: respiratory distress, wheezes, rales, rhonchi, stridor Cardiovascular Exam: Present: regular rate, normal rhythm, normal heart sounds. Absent: systolic murmur, diastolic murmur, rubs, gallop, clicks GI/Abdominal exam: Present: soft, normal bowel sounds. Absent: distended, tenderness, guarding, rebound, rigid Neurological exam: Present: alert, oriented X3, CN II-XII intact, reflexes normal. Absent: motor sensory deficit Skin exam: Present: warm, dry, intact, normal color. Absent: rash Course Vital Signs 12/22/17 12/22/17 12/22/17 07:40 07:59 08:37 Temperature 98.8 F Pulse Rate 80 71 77 Respiratory 18 18 18 Rate Blood Pressure 184/138 175/102 179/110 O2 Sat by Pulse 98 97 100 Oximetry 12/22/17 12/22/17 12/22/17 09:27 10:00 10:55 Temperature 98.8 F 97.6 F Pulse Rate 60 70 70 Respiratory 16 18 16 Rate Blood Pressure 192/101 183/104 178/88 O2 Sat by Pulse 100 97 99 Oximetry 12/22/17 11:03 Temperature Pulse Rate 72 Respiratory 18 Rate Blood Pressure 154/95 O2 Sat by Pulse 95 Oximetry EKG Findings - EKG Comments: EKG Findings:: EKG performed at 7:55 normal sinus rhythm with a rate of 72 ME 174 QRS 76 QT/QTC 430/464 Medical Decision Making - Medical Decision Making 52-year-old female presented for anxiety, numbness or tingling in extremities. Patient had no symptoms when she arrived emergency room. Patient patient's had lab work, EKG and chest x-ray unremarkable. Patient will be discharged at this time with anxiety and hypertension. She is advised that she needs to get blood pressure medication as directed for properly work. - Lab Data Result diagrams: 12/22/17 08:31 12/22/17 08:31 Lab Results 12/22/17 12/22/17 12/22/17 Range/Units 08:31 08:31 08:31 WBC 7.2 (3.8-10.6) k/uL RBC 4.51 (3.80-5.40) m/uL Hgb 14.3 (11.4-16.0) gm/dL Hct 41.7 (34.0-46.0) % MCV 92.5 (80.0-100.0) fL MCH 31.7 (25.0-35.0) pg MCHC 34.2 (31.0-37.0) g/dL RDW 12.7 (11.5-15.5) % Plt Count 325 (150-450) k/uL Neutrophils % 79 % Lymphocytes % 15 % Monocytes % 4 % Eosinophils % 1 % Basophils % 1 % Neutrophils # 5.7 (1.3-7.7) k/uL Lymphocytes # 1.1 (1.0-4.8) k/uL Monocytes # 0.3 (0-1.0) k/uL Eosinophils # 0.1 (0-0.7) k/uL Basophils # 0.0 (0-0.2) k/uL PT (9.0-12.0) sec INR (<1.2) APTT (22.0-30.0) sec Sodium 140 (137-145) mmol/L Potassium 3.7 (3.5-5.1) mmol/L Chloride 99 (98-107) mmol/L Carbon Dioxide 27 (22-30) mmol/L Anion Gap 14 mmol/L BUN 10 (7-17) mg/dL Creatinine 0.58 (0.52-1.04) mg/dL Est GFR (CKD-EPI)AfAm >90 (>60 ml/min/1.73 sqM) Est GFR (CKD-EPI)NonAf >90 (>60 ml/min/1.73 sqM) Glucose 99 (74-99) mg/dL Calcium 9.4 (8.4-10.2) mg/dL Magnesium 1.6 (1.6-2.3) mg/dL Total Bilirubin 0.8 (0.2-1.3) mg/dL AST 25 (14-36) U/L ALT 27 (9-52) U/L Alkaline Phosphatase 85 (38-126) U/L Total Creatine Kinase 86 (30-135) U/L CK-MB (CK-2) 0.7 (0.0-2.4) ng/mL CK-MB (CK-2) Rel Index 0.8 Troponin I <0.012 (0.000-0.034) ng/mL Total Protein 6.7 (6.3-8.2) g/dL Albumin 4.4 (3.5-5.0) g/dL Urine Color Urine Appearance (Clear) Urine pH (5.0-8.0) Ur Specific [place] (1.001-1.035) Urine Protein (Negative) Urine Glucose (UA) (Negative) Urine Ketones (Negative) Urine Blood (Negative) Urine Nitrite (Negative) Urine Bilirubin (Negative) Urine Urobilinogen (<2.0) mg/dL Ur Leukocyte Esterase (Negative) Urine RBC (0-5) /hpf Urine WBC (0-5) /hpf Urine Bacteria (None) /hpf Urine Mucus (None) /hpf Urine Opiates Screen (NotDetected) Ur Oxycodone Screen (NotDetected) Urine Methadone Screen (NotDetected) Ur Propoxyphene Screen (NotDetected) Ur Barbiturates Screen (NotDetected) U Tricyclic Antidepress (NotDetected) Ur Phencyclidine Scrn (NotDetected) Ur Amphetamines Screen (NotDetected) U Methamphetamines Scrn (NotDetected) U Benzodiazepines Scrn (NotDetected) Urine Cocaine Screen (NotDetected) U Marijuana (THC) Screen (NotDetected) Serum Alcohol <10 mg/dL 05/30/18 05/30/18 Range/Units 08:31 08:31 WBC (3.8-10.6) k/uL RBC (3.80-5.40) m/uL Hgb (11.4-16.0) gm/dL Hct (34.0-46.0) % MCV (80.0-100.0) fL MCH (25.0-35.0) pg MCHC (31.0-37.0) g/dL RDW (11.5-15.5) % Plt Count (150-450) k/uL Neutrophils % % Lymphocytes % % Monocytes % % Eosinophils % % Basophils % % Neutrophils # (1.3-7.7) k/uL Lymphocytes # (1.0-4.8) k/uL Monocytes # (0-1.0) k/uL Eosinophils # (0-0.7) k/uL Basophils # (0-0.2) k/uL PT 10.0 (9.0-12.0) sec INR 1.0 (<1.2) APTT 25.1 (22.0-30.0) sec Sodium (137-145) mmol/L Potassium (3.5-5.1) mmol/L Chloride (98-107) mmol/L Carbon Dioxide (22-30) mmol/L Anion Gap mmol/L BUN (7-17) mg/dL Creatinine (0.52-1.04) mg/dL Est GFR (CKD-EPI)AfAm (>60 ml/min/1.73 sqM) Est GFR (CKD-EPI)NonAf (>60 ml/min/1.73 sqM) Glucose (74-99) mg/dL Calcium (8.4-10.2) mg/dL Magnesium (1.6-2.3) mg/dL Total Bilirubin (0.2-1.3) mg/dL AST (14-36) U/L ALT (9-52) U/L Alkaline Phosphatase (38-126) U/L Total Creatine Kinase (30-135) U/L CK-MB (CK-2) (0.0-2.4) ng/mL CK-MB (CK-2) Rel Index Troponin I (0.000-0.034) ng/mL Total Protein (6.3-8.2) g/dL Albumin (3.5-5.0) g/dL Urine Color Light Yellow Urine Appearance Clear (Clear) Urine pH 7.0 (5.0-8.0) Ur Specific [place] 1.006 (1.001-1.035) Urine Protein Negative (Negative) Urine Glucose (UA) Negative (Negative) Urine Ketones Negative (Negative) Urine Blood Trace H (Negative) Urine Nitrite Negative (Negative) Urine Bilirubin Negative (Negative) Urine Urobilinogen <2.0 (<2.0) mg/dL Ur Leukocyte Esterase Negative (Negative) Urine RBC 2 (0-5) /hpf Urine WBC <1 (0-5) /hpf Urine Bacteria Rare H (None) /hpf Urine Mucus Rare H (None) /hpf Urine Opiates Screen Not Detected (NotDetected) Ur Oxycodone Screen Not Detected (NotDetected) Urine Methadone Screen Not Detected (NotDetected) Ur Propoxyphene Screen Not Detected (NotDetected) Ur Barbiturates Screen Not Detected (NotDetected) U Tricyclic Antidepress Not Detected (NotDetected) Ur Phencyclidine Scrn Not Detected (NotDetected) Ur Amphetamines Screen Not Detected (NotDetected) U Methamphetamines Scrn Not Detected (NotDetected) U Benzodiazepines Scrn Not Detected (NotDetected) Urine Cocaine Screen Not Detected (NotDetected) U Marijuana (THC) Screen Not Detected (NotDetected) Serum Alcohol mg/dL Disposition Clinical Impression: Hypertension, Anxiety Disposition: HOME SELF-CARE Condition: Stable Instructions: Hypertension (ED) Additional Instructions: Please return to the Emergency Department if symptoms worsen or any other concerns. Prescriptions: Metoprolol Tartrate [Lopressor] 25 mg PO BID #30 tablet Is patient prescribed a controlled substance at d/c from ED?: No Referrals: Dae Perkins MD [Primary Care Provider] - 1-2 days Time of Disposition: 11:14
[2017-12-22 08:51] LABS: Appearance,Urine Clear (Clear); Bacteria,Urine Rare /hpf; Bilirubin,Urine Negative (Negative); Blood,Urine Trace (Negative); Color,Urine Light Yellow; Glucose,Urine (UA) Negative (Negative); Ketones,Urine Negative (Negative); Leukocyte Esterase,Urine Negative (Negative); Mucus,Urine Rare /hpf; Nitrite,Urine Negative (Negative); Protein,Urine Negative (Negative); RBC,Urine 2 /hpf (0-5); Specific Gravity,Urine 1.006 (1.001-1.035); Urobilinogen,Urine <2.0 mg/dL (<2.0); WBC,Urine <1 /hpf (0-5)
[2017-12-22 08:54] LABS: Amphetamine Screen,Urine Not Detected (NotDetected); Barbiturate Screen,Urine Not Detected (NotDetected); Benzodiazepines Screen,Urine Not Detected (NotDetected); Cocaine Screen,Urine Not Detected (NotDetected); Methadone Screen, Urine Not Detected (NotDetected); Opiate Screen,Urine Not Detected (NotDetected); Oxycodone Screen, Urine Not Detected (NotDetected); Phencyclidine Screen,Urine Not Detected (NotDetected); Tricyclic Antidepressant,Urine Not Detected (NotDetected); Urn Cannabinoid Scrn Not Detected (NotDetected)
[2017-12-22 08:56] LABS: ALT 27 U/L (9-52); AST 25 U/L (14-36); Albumin 4.4 g/dL (3.5-5.0); Alcohol <10 mg/dL; Alkaline Phosphatase 85 U/L (38-126); Anion Gap 14 mmol/L; Blood Urea Nitrogen 10 mg/dL (7-17); Calcium 9.4 mg/dL (8.4-10.2); Carbon Dioxide 27 mmol/L (22-30); Chloride 99 mmol/L (98-107); Glucose 99 mg/dL (74-99); Magnesium 1.6 mg/dL (1.6-2.3); Potassium 3.7 mmol/L (3.5-5.1); Sodium 140 mmol/L (137-145); Total Bilirubin 0.8 mg/dL (0.2-1.3); Total Protein 6.7 g/dL (6.3-8.2)
[2017-12-22 08:58] LABS: Partial Thromboplastin Time 25.1 sec (22.0-30.0)
--- NOTE | 2017-12-22 09:07 | XR ---
EXAMINATION TYPE: XR chest 2V DATE OF EXAM: 12/22/2017 COMPARISON: NONE INDICATION: Syncope TECHNIQUE: Frontal and lateral views of the chest are obtained. FINDINGS: The heart size is normal. The pulmonary vasculature is normal. The lungs are clear. IMPRESSION: 1. No acute pulmonary process.
[2017-12-22 09:09] LABS: Creatine Kinase 86 U/L (30-135)
[2017-12-22 09:22] LABS: Creatine Kinase MB 0.7 ng/mL (0.0-2.4); Troponin I <0.012 ng/mL (0.000-0.034)
[2017-12-22] MEDS ORDERED: LORazepam 2 MG/ML INJ IV STA (09:58)
[2017-12-22] MEDS ORDERED: hydrALAZINE HCL 20 MG/ML 1 ML VIAL IVP STA (10:54)
[2017-12-22 11:04] VITALS: RESP 18
[2017-12-22 11:50] VITALS: BP 170/107; PULSE 80; TEMP 97.4
== END 2017-12-22 11:53 | disposition home or self-care (01) ==
LOC: EC 07:39
DX: I10 Essential (primary) hypertension (principal); F41.9 Anxiety disorder, unspecified; Z86.14 Personal history of Methicillin resistant Staphylococcus aureus infection; Z87.891 Personal history of nicotine dependence; Z79.899 Other long term (current) drug therapy
CPT/HCPCS: 36415; 93005; 80053; 82550; 82553; 83735; 84484; 85025; 85610; 85730; 81001; 80306; 80320; 71046; 99285; 96374; 96361 ×2; J2060

== ENCOUNTER 2019-03-27 11:22 | Inpatient (IN) | payer BC, OTHER ==
[2019-03-27] MEDS ORDERED: SODIUM CHLORIDE 0.9% 1,000 ML IV STA ×2 (12:08)
[2019-03-27] MEDS ORDERED: SODIUM CHLORIDE 0.9% 500 ML 500 ML IV STA (12:08)
[2019-03-27] MEDS ORDERED: LORazepam 2 MG/ML INJ IV STA (12:08)
--- NOTE | 2019-03-27 12:10 | ED ---
Female Urogenital HPI - General Chief complaint: Urogenital Stated complaint: lt hand numbness, cannot urinate Time Seen by Provider: 03/27/19 11:42 Source: patient, RN notes reviewed, old records reviewed Mode of arrival: ambulatory Limitations: no limitations - History of Present Illness Initial comments: This is a 54-year-old female the ER for evaluation she was essay for evaluation regards to weakness not feeling well, patient has a history of alcohol abuse, does have history of alcohol withdrawal seizures. Patient also complaining of abdominal pain difficulty urinating dehydration. No recent medication changes, she does feel like she may have a fever feel sweaty. Mild nausea control, persistent vomiting. MD Complaint: pelvic pain, other (Abdominal pain) -: hour(s) Radiation: suprapubic, periumbilical Severity: moderate Severity scale (1-10): 4 Quality: cramping Consistency: constant Improves with: none Worsens with: urination Patient : No Associated Symptoms: abdominal pain, nausea/vomiting, fever/chills, loss of appetite, dysuria, weakness - Related Data Home Medications Medication Instructions Recorded Confirmed Folic Acid 0.4 mg PO DAILY 10/21/17 03/27/19 Thiamine [Vitamin B-1] 100 mg PO DAILY 10/21/17 03/27/19 Previous Rx's Medication Instructions Recorded Metoprolol Tartrate [Lopressor] 25 mg PO BID #30 tablet 12/22/17 Allergies Allergy/AdvReac Type Severity Reaction Status Date / Time No Known Allergies Allergy Verified 03/27/19 12:47 Review of Systems ROS Statement: Those systems with pertinent positive or pertinent negative responses have been documented in the HPI. ROS Other: All systems not noted in ROS Statement are negative. Past Medical History Past Medical History: GI Bleed Additional Past Medical History / Comment(s): abdominal discomfort History of Any Multi-Drug Resistant Organisms: MRSA Date of last positivie culture/infection: 2005 MDRO Source:: L LEG WOUND. Past Surgical History: No Surgical Hx Reported Additional Past Surgical History / Comment(s): PT HAS NEVER HAD SURGERY. Past Anesthesia/Blood Transfusion Reactions: No Reported Reaction Additional Past Anesthesia/Blood Transfusion Reaction / Comment(s): has had anesthesia with removal of wisdom teeth only Past Psychological History: Depression Smoking Status: Former smoker Past Alcohol Use History: Daily, Heavy Past Drug Use History: None Reported - Past Family History Father Family Medical History: Cancer Additional Family Medical History / Comment(s): PT IS LIVING WITH STAGE 4 ESOPHAGEAL CANCER. HE IS 76 YRS OLD. Mother Family Medical History: Vascular Disorder Additional Family Medical History / Comment(s): MOTHER IS ALIVE AND 74 YRES OLD. SHE HAD CARATID ARTERY DISEASE. General Exam Limitations: no limitations General appearance: alert, anxious Head exam: Present: atraumatic, normocephalic, normal inspection Eye exam: Present: normal appearance, PERRL, EOMI. Absent: scleral icterus, conjunctival injection, periorbital swelling ENT exam: Present: normal exam, mucous membranes moist Neck exam: Present: normal inspection. Absent: tenderness, meningismus, lymphadenopathy Respiratory exam: Present: normal lung sounds bilaterally. Absent: respiratory distress, wheezes, rales, rhonchi, stridor Cardiovascular Exam: Present: normal rhythm, tachycardia, normal heart sounds. Absent: systolic murmur, diastolic murmur, rubs, gallop, clicks GI/Abdominal exam: Present: soft, normal bowel sounds. Absent: distended, tenderness, guarding, rebound, rigid Extremities exam: Present: normal inspection, full ROM, normal capillary refill. Absent: tenderness, pedal edema, joint swelling, calf tenderness Back exam: Present: normal inspection Neurological exam: Present: alert, oriented X3, CN II-XII intact Psychiatric exam: Present: normal affect, normal mood Skin exam: Present: warm, dry, intact, normal color. Absent: rash Course Vital Signs 03/27/19 03/27/19 11:30 13:07 Temperature 99.3 F Pulse Rate 108 H 103 H Respiratory 20 18 Rate Blood Pressure 144/99 152/85 O2 Sat by Pulse 99 98 Oximetry - Reevaluation(s) Reevaluation #1: 03/27/19 12:10 Medical records reviewed Reevaluation #2: 03/27/19 13:17 Patient's symptoms of tremor and anxiety or improved here in the Reevaluation #3: 03/27/19 13:18 The center patient does have history of alcohol withdrawal seizure multiple prior seizures in the past Medical Decision Making - Medical Decision Making 4 female the ER for evaluation of not feeling well dehydration patient found to be alcohol ketoacidosis will not for hydration, monitoring for DTs - Lab Data Result diagrams: 03/27/19 12:21 03/27/19 12:21 Lab Results 03/27/19 03/27/19 03/27/19 Range/Units 12:21 12:21 12:21 WBC 12.9 H (3.8-10.6) k/uL RBC 4.61 (3.80-5.40) m/uL Hgb 14.7 (11.4-16.0) gm/dL Hct 43.1 (34.0-46.0) % MCV 93.5 (80.0-100.0) fL MCH 31.9 (25.0-35.0) pg MCHC 34.1 (31.0-37.0) g/dL RDW 12.9 (11.5-15.5) % Plt Count 296 (150-450) k/uL Neutrophils % 90 % Lymphocytes % 5 % Monocytes % 4 % Eosinophils % 0 % Basophils % 0 % Neutrophils # 11.5 H (1.3-7.7) k/uL Lymphocytes # 0.7 L (1.0-4.8) k/uL Monocytes # 0.5 (0-1.0) k/uL Eosinophils # 0.1 (0-0.7) k/uL Basophils # 0.1 (0-0.2) k/uL PT 9.8 (9.0-12.0) sec INR 0.9 (<1.2) Sodium 136 L (137-145) mmol/L Potassium 4.2 (3.5-5.1) mmol/L Chloride 97 L (98-107) mmol/L Carbon Dioxide 12 L (22-30) mmol/L Anion Gap 27 mmol/L BUN 11 (7-17) mg/dL Creatinine 0.66 (0.52-1.04) mg/dL Est GFR (CKD-EPI)AfAm >90 (>60 ml/min/1.73 sqM) Est GFR (CKD-EPI)NonAf >90 (>60 ml/min/1.73 sqM) Glucose 108 H (74-99) mg/dL Calcium 9.5 (8.4-10.2) mg/dL Phosphorus 2.9 (2.5-4.5) mg/dL Magnesium 1.7 (1.6-2.3) mg/dL Total Bilirubin 1.2 (0.2-1.3) mg/dL AST 29 (14-36) U/L ALT 29 (9-52) U/L Alkaline Phosphatase 136 H (38-126) U/L Total Protein 7.5 (6.3-8.2) g/dL Albumin 4.7 (3.5-5.0) g/dL Lipase 41 (23-300) U/L Serum Alcohol 46 mg/dL Disposition Clinical Impression: ETOH abuse, Alcohol withdrawal delirium, Alcoholic ketoacidosis, Dehydration Disposition: ADMITTED IP TO THIS HOSP Condition: Good Is patient prescribed a controlled substance at d/c from ED?: No Referrals: Dae Perkins MD [Primary Care Provider] - 1-2 days
[2019-03-27 12:38] LABS: Basophils # (A) 0.1 k/uL (0-0.2); Basophils % (A) 0 %; Eosinophils # (A) 0.1 k/uL (0-0.7); Eosinophils % (A) 0 %; HCT 43.1 % (34.0-46.0); HGB 14.7 gm/dL (11.4-16.0); Lymphocytes # (A) 0.7 k/uL (1.0-4.8); Lymphocytes % (A) 5 %; MCH 31.9 pg (25.0-35.0); MCHC 34.1 g/dL (31.0-37.0); MCV 93.5 fL (80.0-100.0); Mean Platelet Volume 6.5; Monocytes # (A) 0.5 k/uL (0-1.0); Monocytes % (A) 4 %; Neutrophils # (A) 11.5 k/uL (1.3-7.7); Neutrophils % (A) 90 %; Platelet Count 296 k/uL (150-450); RBC 4.61 m/uL (3.80-5.40); RDW 12.9 % (11.5-15.5); WBC 12.9 k/uL (3.8-10.6)
[2019-03-27 12:44] LABS: ALT 29 U/L (9-52); AST 29 U/L (14-36); African American GFR (CKD) >90 (>60 ml/min/1.73 sqM); Albumin 4.7 g/dL (3.5-5.0); Alcohol 46 mg/dL; Alkaline Phosphatase 136 U/L (38-126); Anion Gap 27 mmol/L; Blood Urea Nitrogen 11 mg/dL (7-17); Calcium 9.5 mg/dL (8.4-10.2); Carbon Dioxide 12 mmol/L (22-30); Chloride 97 mmol/L (98-107); Glucose 108 mg/dL (74-99); Magnesium 1.7 mg/dL (1.6-2.3); Phosphorus 2.9 mg/dL (2.5-4.5); Potassium 4.2 mmol/L (3.5-5.1); Sodium 136 mmol/L (137-145); Total Bilirubin 1.2 mg/dL (0.2-1.3); Total Protein 7.5 g/dL (6.3-8.2)
[2019-03-27 12:50] LABS: INR 0.9 (<1.2); Prothrombin Time 9.8 sec (9.0-12.0)
[2019-03-27] MEDS ORDERED: THIAMINE 100 MG/ML 2 ML VIAL IM STA (13:15)
[2019-03-27] MEDS ORDERED: LORazepam 2 MG/ML INJ IV PRN ×3 (13:15)
[2019-03-27] MEDS ORDERED: DEXTROSE 5%-0.45% NACL 1,000 ML IV SCH (13:15)
[2019-03-27] MEDS: THIAMINE 100 MG TAB PO SCH ×2 (14:09→14:16)
[2019-03-27 14:10] LABS: Appearance,Urine Clear (Clear); Bilirubin,Urine Negative (Negative); Blood,Urine Moderate (Negative); Color,Urine Light Yellow; Glucose,Urine (UA) Negative (Negative); Ketones,Urine 4+ (Negative); Leukocyte Esterase,Urine Negative (Negative); Mucus,Urine Rare /hpf; Nitrite,Urine Negative (Negative); PH, Urine 5.5 (5.0-8.0); Protein,Urine 1+ (Negative); RBC,Urine 5 /hpf (0-5); Specific Gravity,Urine 1.016 (1.001-1.035); Urobilinogen,Urine <2.0 mg/dL (<2.0); WBC,Urine 3 /hpf (0-5)
[2019-03-27] MEDS ORDERED: cloNIDine HCL 0.1 MG TAB PO PRN (14:17)
--- NOTE | 2019-03-27 14:57 | XR ---
EXAMINATION TYPE: XR chest 1V portable DATE OF EXAM: 03/27/2019 COMPARISON: 12/22/2017 HISTORY: Shortness of breath and pneumonia TECHNIQUE: Single frontal view of the chest is obtained. FINDINGS: There is new right hemidiaphragm elevation. Perivascular prominence is seen on the left pa rticularly in the perihilar region. Osseous structures appear intact. Heart is mildly enlarged. IMPRESSION: New right hemidiaphragm elevation. Sniff test could be performed on a nonemergent basis to evaluate for diaphragmatic paresis. Left perihilar prominence may relate to rotation, infectious/i nflammatory airway disease or atypical pneumonia.
[2019-03-27] MEDS ORDERED: ACETAMINOPHEN TAB 500 MG TAB PO PRN (18:43)
[2019-03-27] MEDS ORDERED: ONDANSETRON 4 MG/2 ML VIAL IVP PRN (18:43)
[2019-03-27] MEDS ORDERED: TEMAZEPAM 15 MG CAP PO PRN (18:43)
[2019-03-27] MEDS ORDERED: HYDROmorphone 0.5 MG/0.5 ML SYRINGE IVP PRN (18:43)
[2019-03-27] MEDS ORDERED: HYDROcodone/APAP 5-325MG 1 EACH TAB PO PRN (18:43)
--- NOTE | 2019-03-27 19:39 | XR ---
EXAMINATION TYPE: XR chest 2V DATE OF EXAM: 03/27/2019 COMPARISON: Today HISTORY: Fever TECHNIQUE: Frontal and lateral views of the chest are obtained. FINDINGS: Heart and mediastinum are normal. Lungs are clear. Costophrenic angles are clear. Bony tho rax is intact. IMPRESSION: Normal chest. No significant change.
[2019-03-27] MEDS: PANTOPRAZOLE 40 MG/10 ML VIAL IVP SCH ×2 (19:47→21:04)
[2019-03-27] MEDS: AMPICILLIN-SULBACTAM 3 GM in SODIUM CHLORIDE 0.9% 100 ML IVPB SCH (19:47)
[2019-03-27] MEDS: cloNIDine HCL 0.1 MG TAB PO SCH (19:47)
[2019-03-27] MEDS: HEPARIN SODIUM,PORCINE 5,000 UNIT/ML 1 ML VIAL SQ SCH (19:47)
[2019-03-27] MEDS: METOPROLOL TARTRATE 25 MG TAB PO SCH (19:49)
[2019-03-27] MEDS ORDERED: SODIUM CHLORIDE 0.9% 1,000 ML with POTASSIUM CHLORIDE 20 MEQ, MVI, ADULT NO.4 WITH VIT ... IV SCH ×5 (20:00)
--- NOTE | 2019-03-28 02:08 | HP ---
HISTORY AND PHYSICAL CHIEF COMPLAINTS: ETOH intoxication as well as urinary difficulties and weakness. HISTORY OF PRESENT ILLNESS: This 54-year-old woman with a past medical history of multiple medications including GI bleed history, abdominal discomfort, history of MRSA, history of left leg wound, history of depression, being followed by Dr. Perkins in the outpatient setting was complaining of urinary difficulty. The patient also complains of weakness. The patient has significant alcoholism and alcohol withdrawal seizures also. The patient the patient came to [facility] and alcohol level was found to be 40 so patient evaluated for evaluation. Patient has some vomiting also after admission. There is no history of fever, rigors or chills. No history of headache, loss of consciousness. No nausea at this time. PAST MEDICAL HISTORY: History of GI bleed, history of abdominal discomfort, history of MRSA, history of left leg pain, history of depression. MEDICATIONS PRIOR TO ADMISSION: 1. Thiamine 100 mg p.o. daily. 2. Lopressor 25 mg p.o. b.i.d. 3. Folic acid 0.4 mg daily. ALLERGIES: None. FAMILY HISTORY: History of cancer in the family. SOCIAL HISTORY: History of previous smoking. Current history of significant alcohol intake. REVIEW OF SYSTEMS: ENT: No diminished vision, no diminished hearing. CARDIOVASCULAR: No angina. RESPIRATORY: No cough. GI: As mentioned earlier. : As mentioned earlier. NERVOUS SYSTEM: No numbness or weakness. ALLERGY: No asthma. MUSCULOSKELETAL: As mentioned earlier. HEMATOLOGY: No history of anemia. ENDOCRINE: No history of diabetes or hypothyroidism. CONSTITUTIONAL: As mentioned earlier. DERMATOLOGY: Negative. RHEUMATOLOGY: Negative. PSYCHIATRY: As mentioned earlier. PHYSICAL EXAMINATION: Alert and oriented x3. Pulse is 99, blood pressure 140/90, respiration 18, temperature 99.1, pulse ox 98% on room air. HEENT: Conjunctivae normal. Oral mucosa moist. NECK: No jugular venous distention. No lymph node enlargement. CARDIOVASCULAR: S1, S2. RESPIRATORY: Diminished breath sounds at the bases. A few rhonchi, no crackles. ABDOMEN: Soft. Mild diffuse discomfort. No guarding, no rigidity. No mass palpable. LEGS: No edema, no swelling. NERVOUS SYSTEM: Higher functions mentioned earlier. Moves all four limbs. No focal deficits. LYMPHATICS: No lymph node in neck or axilla. SKIN: No rash. JOINTS: No active deforming arthropathy. LABS: WBC 12.2, hemoglobin 14.2, sodium 136 and UA noted. ASSESSMENT: 1. Acute alcohol intoxication. 2. Acute alcohol withdrawal and delirium tremens. 3. Nausea, vomiting, possible acute gastritis. 4. Hyponatremia. 5. Increased WBC. 6. History of gastrointestinal bleed. 7. History of MRSA. 8. History of left leg wound. 9. History of depression. 10.Nicotine dependence. RECOMMENDATIONS AND DISCUSSION: In this 54-year-old woman who presented with multiple medical issues, at this time I recommend to continue current management, continue treatment. Otherwise, at this time WA protocol, proton pump inhibitors, symptomatic treatment. Guarded prognosis because of multiple complex medical issues. Repeat labs. Social work evaluation for alcohol rehab recommendations. We will watch for the DTs and DT precautions. Prognosis guarded. Further recommendations to follow. Dr. Perkins will follow tomorrow. MMFREDOL / RAGHAVN: [id number] /
[2019-03-28] MEDS: AMPICILLIN-SULBACTAM 3 GM in SODIUM CHLORIDE 0.9% 100 ML IVPB SCH ×3 (04:56→21:13)
[2019-03-28 07:05] LABS: Basophils % (A) 0 %; Eosinophils % (A) 1 %; HCT 36.7 % (34.0-46.0); HGB 12.5 gm/dL (11.4-16.0); Lymphocytes # (A) 0.3 k/uL (1.0-4.8); Lymphocytes % (A) 6 %; MCH 31.9 pg (25.0-35.0); MCHC 34.2 g/dL (31.0-37.0); MCV 93.4 fL (80.0-100.0); Mean Platelet Volume 6.8; Monocytes # (A) 0.2 k/uL (0-1.0); Monocytes % (A) 4 %; Neutrophils # (A) 4.8 k/uL (1.3-7.7); Neutrophils % (A) 88 %; Platelet Count 190 k/uL (150-450); RBC 3.92 m/uL (3.80-5.40); RDW 14.4 % (11.5-15.5); WBC 5.4 k/uL (3.8-10.6)
[2019-03-28 07:19] LABS: African American GFR (CKD) >90 (>60 ml/min/1.73 sqM); Anion Gap 12 mmol/L; Blood Urea Nitrogen 7 mg/dL (7-17); Calcium 8.3 mg/dL (8.4-10.2); Carbon Dioxide 23 mmol/L (22-30); Chloride 97 mmol/L (98-107); Glucose 108 mg/dL (74-99); Potassium 3.7 mmol/L (3.5-5.1); Sodium 132 mmol/L (137-145)
[2019-03-28] MEDS ORDERED: FOLIC ACID 1 MG TAB PO SCH (09:00)
[2019-03-28] MEDS: PANTOPRAZOLE 40 MG/10 ML VIAL IVP SCH (09:10)
[2019-03-28] MEDS: HEPARIN SODIUM,PORCINE 5,000 UNIT/ML 1 ML VIAL SQ SCH ×2 (10:00→22:13)
[2019-03-28] MEDS: cloNIDine HCL 0.1 MG TAB PO SCH ×2 (10:00→22:13)
[2019-03-28] MEDS: THIAMINE 100 MG TAB PO SCH ×2 (10:00→17:37)
[2019-03-28] MEDS: METOPROLOL TARTRATE 25 MG TAB PO SCH ×2 (10:00→22:12)
[2019-03-28 17:36] LABS: Appearance,Urine Clear (Clear); Bacteria,Urine Rare /hpf; Bilirubin,Urine Negative (Negative); Blood,Urine Small (Negative); Color,Urine Light Yellow; Glucose,Urine (UA) Negative (Negative); Ketones,Urine 1+ (Negative); Leukocyte Esterase,Urine Negative (Negative); Nitrite,Urine Negative (Negative); PH, Urine 6.5 (5.0-8.0); Protein,Urine Negative (Negative); RBC,Urine 9 /hpf (0-5); Specific Gravity,Urine 1.003 (1.001-1.035); Squamous Epithelial Cell,Urine <1 /hpf (0-4); Urobilinogen,Urine <2.0 mg/dL (<2.0); WBC,Urine 3 /hpf (0-5)
[2019-03-28] MEDS: PANTOPRAZOLE 40 MG TABLET PO SCH (17:37)
[2019-03-28] MEDS ORDERED: IOPAMIDOL-300 CONTRAST 30 ML VIAL (ORAL USE) PO PRN (17:43)
--- NOTE | 2019-03-28 21:57 | PN ---
PROGRESS NOTE DATE OF SERVICE: 03/28/2019. This 54-year-old woman was admitted with significant alcohol intoxication, delirium tremens is being closely monitored. Patient is still complaining of lower abdomen discomfort and dysuria also. No chest pain. No palpitations. No fever. PHYSICAL EXAM: Alert and oriented x3. Pulse 67. Blood pressure 147/80, respiration 18, temperature 98.9, pulse ox 97% on room air. HEENT: Conjunctivae normal. NECK: No jugular venous distention. CARDIOVASCULAR: S1, S2 muffled. RESPIRATION: Breath sounds diminished in the bases. No rhonchi. No crackles. ABDOMEN is soft, nontender. LEGS are no edema. No swelling. CENTRAL NERVOUS SYSTEM: No focal deficits. LABS: WBC 5.2, hemoglobin 12.8, sodium 132. ASSESSMENT: 1. Acute alcohol intoxication. 2. Acute alcohol withdrawal and delirium tremens. 3. Nausea and vomiting, possible acute gastritis. 4. Lower abdominal discomfort, possible mild urinary tract infection. 5. Hyponatremia. 6. Increased WBC. 7. History of gastrointestinal bleed. 8. History of MRSA. 9. History of left leg wound. 10.History of depression. 11.History of nicotine dependence. RECOMMENDATIONS AND DISCUSSION: Recommend to continue current medications, management and symptomatic treatment. We will recommend a short course of antibiotics. I would also recommend a CT scan of the abdomen and pelvis to complete the workup as well. Otherwise, prognosis guarded because of multiple complex medical issues and further recommendations to follow. MMODL / IJN: [id number] /
--- NOTE | 2019-03-28 22:00 | CT ---
EXAMINATION TYPE: CT abdomen pelvis wo IV con but with oral contrast DATE OF EXAM: 03/28/2019 COMPARISON: 11/05/2015 HISTORY: abdominal pain, pain with urination CT DLP: 420.9 mGycm Automated exposure control for dose reduction was used. TECHNIQUE: Helical acquisition of images was performed from the lung bases through the pelvis. FINDINGS: In the limitations of noncontrast CT the following observations are made. LUNG BASES: No significant abnormality is appreciated. LIVER/GB: No significant abnormality is appreciated. PANCREAS: No significant abnormality is seen. SPLEEN: No significant abnormality is seen. ADRENALS: No significant abnormality is seen. KIDNEYS: No significant abnormality is seen. FREE AIR: No free air is visualized no peritoneal fluid. RETROPERITONEAL ADENOPATHY: None visualized REPRODUCTIVE ORGANS: No significant abnormality is seen URINARY BLADDER: There is mild bladder distention with a mild indistinctness of the margins of the u rinary bladder throughout the perivesical space. This is a nonspecific finding which can correlate wi th a clinical diagnosis of cystitis. PELVIC ADENOPATHY: None visualized. OSSEOUS STRUCTURES: No new lesions. BOWEL: The oral contrast opacifies the stomach, duodenum, jejunum, ileum, and colon. The entire colon appears mildly foreshortened and shows circumferential [id number] mural thicke mathew throughout its extent, with indistinctness of its margins and with tiny mesocolon arcade lymph n odes diffusely. These changes suggest a diffuse pancolitis, of inflammatory/infectious etiology. The stomach and small bowel are unremarkable. The appendix is negative. IMPRESSION: 1. PANCOLITIS PATTERN. 2. INDISTINCT MILDLY DISTENDED URINARY BLADDER.
[2019-03-29] MEDS: AMPICILLIN-SULBACTAM 3 GM in SODIUM CHLORIDE 0.9% 100 ML IVPB SCH ×2 (04:41→12:04)
[2019-03-29 07:52] LABS: Basophils % (A) 1 %; Eosinophils # (A) 0.1 k/uL (0-0.7); Eosinophils % (A) 3 %; HCT 35.1 % (34.0-46.0); HGB 12.1 gm/dL (11.4-16.0); Lymphocytes # (A) 0.7 k/uL (1.0-4.8); Lymphocytes % (A) 21 %; MCH 32.2 pg (25.0-35.0); MCHC 34.5 g/dL (31.0-37.0); MCV 93.5 fL (80.0-100.0); Mean Platelet Volume 7.2; Monocytes # (A) 0.2 k/uL (0-1.0); Monocytes % (A) 6 %; Neutrophils # (A) 2.2 k/uL (1.3-7.7); Neutrophils % (A) 67 %; Platelet Count 189 k/uL (150-450); RBC 3.76 m/uL (3.80-5.40); RDW 14.3 % (11.5-15.5); WBC 3.3 k/uL (3.8-10.6)
[2019-03-29 08:07] LABS: African American GFR (CKD) >90 (>60 ml/min/1.73 sqM); Anion Gap 11 mmol/L; Blood Urea Nitrogen 6 mg/dL (7-17); Calcium 8.8 mg/dL (8.4-10.2); Carbon Dioxide 25 mmol/L (22-30); Chloride 102 mmol/L (98-107); Glucose 87 mg/dL (74-99); Potassium 3.7 mmol/L (3.5-5.1); Sodium 138 mmol/L (137-145)
[2019-03-29] MEDS: HEPARIN SODIUM,PORCINE 5,000 UNIT/ML 1 ML VIAL SQ SCH (08:53)
[2019-03-29] MEDS: THIAMINE 100 MG TAB PO SCH (08:54)
[2019-03-29] MEDS: METOPROLOL TARTRATE 25 MG TAB PO SCH (08:54)
[2019-03-29] MEDS: PANTOPRAZOLE 40 MG TABLET PO SCH (08:54)
[2019-03-29] MEDS: cloNIDine HCL 0.1 MG TAB PO SCH (08:55)
[2019-03-29 10:04] VITALS: BP 130/82; PULSE 74; RESP 17; TEMP 99.7
[2019-03-29] MEDS ORDERED: metroNIDAZOLE-NS PMX 500 MG in SALINE 1 100ML.BAG IVPB SCH (10:30)
[2019-03-29] MEDS ORDERED: LEVOFLOXACIN 500MG-D5W PMX 500 MG in DEXTROSE/WATER 1 100ML.BAG IVPB SCH (11:00)
--- NOTE | 2019-03-30 07:08 | DS ---
DISCHARGE SUMMARY DATE OF SERVICE: 03/29/2019. FINAL DIAGNOSES: 1. Acute alcohol intoxication. 2. Acute alcohol withdrawal and delirium tremens. 3. Nausea, vomiting possible acute gastritis, possible mild colitis. 4. Lower abdominal discomfort, possibly mild urinary tract infection. 5. Hyponatremia. 6. Increased WBC. 7. History of gastrointestinal bleed. 8. History of methicillin-resistant Staphylococcus aureus. 9. History of left leg wound. 10.History of depression. 11.History of nicotine dependence. DISCHARGE DISPOSITION: The patient will be discharged in stable condition with guarded prognosis. HISTORY OF PRESENT ILLNESS: This 54-year-old woman with a past medical history of multiple medical problems was admitted with EtOH intoxication and alcohol withdrawal. Patient also had lower abdominal discomfort, so the patient was treated symptomatically. CAT scan was also done because of persistent abdominal discomfort, which showed sawant colitis pattern, but however the patient was not having any diarrhea or bleeding per rectum and the patient was wanting to go home, not willing to stay, antibiotics suggested. On exam, vitals are stable. CARDIOVASCULAR: S1, S2 muffled. ABDOMEN: Soft. NERVOUS SYSTEM: No focal deficits. DISCHARGE ADVICE AND MEDICATIONS: 1. Diet is cardiac. 2. Activity limited until followup. 3. No EtOH. 4. Follow up with Dr. Perkins and continue to follow up regarding the colitis. Medications are: 1. Folic acid 0.4 daily. 2. Vitamin B1, 100 mg p.o. daily. 3. Catapres 0.1 p.o. b.i.d. 4. Cipro 500 mg p.o. b.i.d. for 3 days. 5. Flagyl 500 mg p.o. t.i.d. for 5 days. 6. Lopressor 25 mg p.o. b.i.d. 7. Multivitamins one p.o. daily. 8. Protonix 40 mg daily. 9. Tylenol p.r.n. To attend AA meetings and alcohol rehab also. MMODL / IJN: [id number] /
== END 2019-03-29 15:32 | disposition home or self-care (01) | DRG 897 ==
LOC: EC 11:22 → 1SOBS 13:15 → OBSVTOIN 19:16 → 4SSUR 21:13
PROVIDERS: ADMIT Family Medicine; ATTEND Family Medicine
DX: F10.231 Alcohol dependence with withdrawal delirium (principal); E87.1 Hypo-osmolality and hyponatremia; E87.2 Acidosis; N39.0 Urinary tract infection, site not specified; E86.0 Dehydration; F17.200 Nicotine dependence, unspecified, uncomplicated; K52.9 Noninfective gastroenteritis and colitis, unspecified; Y90.2 Blood alcohol level of 40-59 mg/100 ml; Z80.0 Family history of malignant neoplasm of digestive organs; Z86.14 Personal history of Methicillin resistant Staphylococcus aureus infection; Z79.899 Other long term (current) drug therapy
CPT/HCPCS: 36415; 71045; 71046; 74176; 80048; 80053; 80320; 81001; 83605; 83690; 83735; 84100; 85025; 85610; 87040; 87086; 96361; 96374; 96376; 99285